=== PATIENT | female | born 1945 | race Caucasian/White ===

== ENCOUNTER 2022-10-02 04:42 | Inpatient (IN) ==
[2022-10-02] MEDS ORDERED: ceFAZolin 2,000 MG/50 ML DUPLEX IV ONE ×2 (05:49→11:00)
[2022-10-02] MEDS ORDERED: VANCOMYCIN INJ 1,000 MG in SODIUM CHLORIDE 0.9% 250 ML IV ONE (06:00)
[2022-10-02] MEDS ORDERED: LACTATED RINGERS 1,000 ML IV SCH (06:00)
[2022-10-02 06:29] LABS: INR 0.9; PT Patient Result 10.2 SECS (10.1-12.1); Partial Thromboplastin Time 24.3 SECS (23.7-32.9)
[2022-10-02] MEDS ORDERED: FAMOTIDINE 20 MG TABLET PO ONE (08:19)
[2022-10-02] MEDS ORDERED: LIDOCAINE 1% 5 ML VIAL ONE (10:39)
[2022-10-02] MEDS ORDERED: DEXAMETHASONE 4 MG/1 ML VIAL ONE (10:39)
[2022-10-02] MEDS ORDERED: ROPIVACAINE 0.5% 30 ML VIAL ONE (10:39)
[2022-10-02] MEDS ORDERED: MIDAZOLAM 2 MG/2 ML VIAL ONE (10:58)
[2022-10-02] MEDS ORDERED: fentaNYL 100 MCG/2 ML VIAL ONE (11:10)
[2022-10-02] MEDS ORDERED: LIDOCAINE 2% 5 ML VIAL ONE (11:10)
[2022-10-02] MEDS ORDERED: propofoL 200 MG/20 ML VIAL IV ONE ×2 (11:10→12:32)
[2022-10-02] MEDS ORDERED: buprenorphine HCL 0.3 MG/ML VIAL ONE (11:12)
[2022-10-02] MEDS ORDERED: diphenhydrAMINE CAP 25 MG CAPSULE PO PRN (12:06)
[2022-10-02] MEDS ORDERED: ZALEPLON 5 MG CAPSULE PO PRN (12:06)
[2022-10-02] MEDS ORDERED: MORPHINE 2 MG/1 ML SYRINGE IV PRN ×2 (12:06)
[2022-10-02] MEDS ORDERED: MAGNESIUM HYDROXIDE SUSP 30 ML UDCUP PO PRN (12:06)
[2022-10-02] MEDS ORDERED: ETOMIDATE 40 MG/20 ML VIAL IV ONE (12:33)
[2022-10-02] MEDS ORDERED: SODIUM CHLORIDE 0.9% 250 ML IV ONE (12:33)
[2022-10-02] MEDS ORDERED: ePHEDrine 50 MG/ML VIAL ONE (12:35)
[2022-10-02] MEDS ORDERED: TRANEXAMIC ACID 1,000 MG/10 ML VIAL ONE (12:56)
[2022-10-02] MEDS ORDERED: BACITRACIN OINT 0.9 GM PACK TOP ONE (13:39)
[2022-10-02] MEDS ORDERED: LACTATED RINGERS 1,000 ML IV ONE (13:40)
[2022-10-02] MEDS: ONDANSETRON 4 MG/2 ML VIAL IV PRN ×2 (14:45→20:45)
[2022-10-02] MEDS ORDERED: ONDANSETRON 4 MG/2 ML VIAL IV PRN (14:48)
[2022-10-02] MEDS ORDERED: ONDANSETRON 4 MG/2 ML VIAL IV ONE (15:32)
[2022-10-02] MEDS: KETOROLAC 15 MG/1 ML VIAL IV SCH ×3 (15:34→23:30)
[2022-10-02] MEDS: LACTATED RINGERS 1,000 ML IV SCH ×2 (15:35→22:13)
[2022-10-02] MEDS: INSULIN LISPRO 100 UNIT/ML SUBCUT SCH ×2 (15:51→22:13)
[2022-10-02] MEDS: ceFAZolin 2,000 MG/50 ML DUPLEX IV SCH ×2 (15:54→23:30)
[2022-10-02] MEDS: metFORMIN 500 MG TABLET PO SCH (17:36)
[2022-10-02] MEDS: DOCUSATE SODIUM 100 MG CAPSULE PO SCH (20:45)
[2022-10-02] MEDS: GABAPENTIN 300 MG CAPSULE PO SCH (20:45)
[2022-10-03 05:11] LABS: Basophils % 0.3 % (0.0-0.8); Eosinophils % 0.2 % (0.00-10.9); Hemoglobin 9.2 GM/DL (12.0-16.0); Immature Granulocytes % 0.6 %; Immature Granulocytes Absolute 0.06 #; Lymphocytes # 1.3 10*3/uL (1.4-4.0); Lymphocytes % 14.1 % (21.3-54.2); Mean Corpuscular HGB Conc 31.7 GM/DL (32-36); Mean Corpuscular Volume 94.8 FL (87-102); Mean Platelet Volume 9.4 FL (9.6-12.0); Monocytes # 0.7 10*3/uL (0.11-0.8); Monocytes % 7.1 % (1.7-12.7); Neutrophils % 77.7 % (38.7-73.9); Platelet Count 286 T/CUMM (130-400); Red Blood Count 3.06 MC/CUMM (3.8-5.5); Red Cell Distribution Width 13.2 % (9.3-17.3); White Blood Count 9.4 T/CUMM (4-12)
[2022-10-03 05:41] LABS: Calcium 8.8 MG/DL (8.5-10.1); Osmolality,Calculated 285.3 MOS/KG (273-304); Potassium 4.4 MMOL/L (3.5-5.1)
[2022-10-03] MEDS: FONDAPARINUX 2.5 MG/0.5 ML SYRINGE SUBCUT SCH (05:56)
[2022-10-03] MEDS: LEVOTHYROXINE 150 MCG TABLET PO SCH (05:56)
[2022-10-03] MEDS: LACTATED RINGERS 1,000 ML IV SCH (05:56)
[2022-10-03] MEDS: INSULIN LISPRO 100 UNIT/ML SUBCUT SCH ×4 (08:01→21:07)
[2022-10-03] MEDS: VALSARTAN 160 MG TABLET PO SCH (09:06)
[2022-10-03] MEDS: CHOLECALCIFEROL 5,000 UNIT TABLET PO SCH (09:06)
[2022-10-03] MEDS: hydroCHLOROthiazide 12.5 MG CAPSULE PO SCH (09:06)
[2022-10-03] MEDS: metFORMIN 500 MG TABLET PO SCH ×2 (09:06→16:13)
[2022-10-03] MEDS: amLODIPine 5 MG TABLET PO SCH (09:06)
[2022-10-03] MEDS: DOCUSATE SODIUM 100 MG CAPSULE PO SCH ×2 (09:06→20:38)
[2022-10-03] MEDS: GABAPENTIN 300 MG CAPSULE PO SCH (20:39)
[2022-10-04] MEDS: FONDAPARINUX 2.5 MG/0.5 ML SYRINGE SUBCUT SCH (05:35)
[2022-10-04] MEDS: LEVOTHYROXINE 150 MCG TABLET PO SCH (05:36)
[2022-10-04 05:42] LABS: Basophils # 0.1 10*3/uL (0.0-0.2); Basophils % 0.7 % (0.0-0.8); Eosinophils # 0.1 10*3/uL (0.0-0.87); Eosinophils % 1.5 % (0.00-10.9); Hematocrit 31.7 VOL% (35.7-47.0); Hemoglobin 9.6 GM/DL (12.0-16.0); Immature Granulocytes % 0.8 %; Immature Granulocytes Absolute 0.07 #; Lymphocytes # 1.7 10*3/uL (1.4-4.0); Lymphocytes % 19.6 % (21.3-54.2); Mean Corpuscular HGB Conc 30.3 GM/DL (32-36); Mean Corpuscular Volume 98.8 FL (87-102); Mean Platelet Volume 9.2 FL (9.6-12.0); Monocytes # 0.5 10*3/uL (0.11-0.8); Monocytes % 6.1 % (1.7-12.7); Neutrophils % 71.3 % (38.7-73.9); Platelet Count 306 T/CUMM (130-400); Red Blood Count 3.21 MC/CUMM (3.8-5.5); Red Cell Distribution Width 13.3 % (9.3-17.3); White Blood Count 8.7 T/CUMM (4-12)
[2022-10-04] MEDS: INSULIN LISPRO 100 UNIT/ML SUBCUT SCH ×2 (08:24→11:13)
[2022-10-04] MEDS: hydroCHLOROthiazide 12.5 MG CAPSULE PO SCH (08:24)
[2022-10-04] MEDS: CHOLECALCIFEROL 5,000 UNIT TABLET PO SCH (08:24)
[2022-10-04] MEDS: DOCUSATE SODIUM 100 MG CAPSULE PO SCH (08:24)
[2022-10-04] MEDS: amLODIPine 5 MG TABLET PO SCH (08:24)
[2022-10-04] MEDS: VALSARTAN 160 MG TABLET PO SCH (08:24)
[2022-10-04] MEDS: metFORMIN 500 MG TABLET PO SCH (08:24)
[2022-10-04 11:10] VITALS: BP 112/53
== END 2022-10-04 11:21 | disposition home health service (06) | DRG 470 ==
LOC: EDSEX → N.SDSINP 04:42 → N.3E 15:01
PROVIDERS: ADMIT Orthopaedic Surgery; ATTEND Orthopaedic Surgery